=== PATIENT | male | born 1945 | race Caucasian/White ===

== ENCOUNTER 2020-12-09 12:53 | Emergency (ER) | payer MEDICARE ==
--- NOTE | 2020-12-09 13:42 | EDM.PDOC ---
ED HPI GENERAL MEDICAL PROBLEM - General Chief Complaint: Neurological Problem Stated Complaint: DIZZY/KIDNEY STONES Time Seen by Provider: 12/09/20 13:25 Source of Information: Reports: Patient, Old Records, RN History Limitations: Reports: No Limitations - History of Present Illness INITIAL COMMENTS - FREE TEXT/NARRATIVE: 75 yo male presents with dizziness mainly with standing. Was seen in the clinic yesterday and had a CBC, CXR, EKG, Covid, and a Trop that were unremarkable. He has been treated with a few courses of antibiotics recently for diarrhea felt due to colitis(actually diverticulitis). He says he has had diarrhea throughout this course. His urine has been dark for an extended period of time. He does not have fever. He thinks his BP is normally closer to 140. He is not 100% clear on his current meds. When he was in the clinic his main complaint yesterday was actually a cough. Onset: Gradual Duration: Week(s): (1-2), Getting Worse Location: Reports: Head Quality: Reports: Other (no pain) Severity: Moderate Improves with: Reports: Other (lying) Worsens with: Reports: Other (Standing) Context: Reports: Other (See HPI) Associated Symptoms: Reports: Cough. 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 since yesterday) - Related Data Allergies Allergy/AdvReac Type Severity Reaction Status Date / Time cephradine Allergy Rash Verified 12/09/20 13:34 Sulfa (Sulfonamide Allergy Rash Verified 12/09/20 13:34 Antibiotics) Home Meds: Home Meds Amitriptyline [Elavil] 25 mg PO BEDTIME 08/14/15 [History] Levothyroxine 112 mcg PO DAILY 08/14/15 [History] atenoloL [Atenolol] 25 mg PO DAILY 08/14/15 [History] Albuterol Sulfate [Albuterol Sulfate Hfa] 1 - 2 puff IH ASDIRECTED 12/09/20 [History] Azithromycin 250 mg PO ASDIRECTED 12/09/20 [History] Finasteride [Proscar] 5 mg PO DAILY 12/09/20 [History] Glucosam/Chond/Collagen/Hyalur [Glucosamine Chondroitin] 1 tab PO BID 12/09/20 [History] Tamsulosin [Tamsulosin 24 Hr] 0.4 mg PO DAILY 12/09/20 [History] Terazosin [Hytrin] 5 mg PO BEDTIME 12/09/20 [History] guaiFENesin [Mucinex] 600 mg PO BID 12/09/20 [History] lisinopriL [Lisinopril] 5 mg PO DAILY 12/09/20 [History] Past Medical History HEENT History: Reports: Impaired Vision Genitourinary History: Reports: Prostate Disorder Musculoskeletal History: Reports: Back Pain, Chronic, Fibromyalgia Neurological History: Reports: None Endocrine/Metabolic History: Reports: Hypothyroidism - Infectious Disease History Infectious Disease History: Reports: Chicken Pox - Past Surgical History Head Surgeries/Procedures: Reports: None HEENT Surgical History: Reports: Cataract Surgery GI Surgical History: Reports: Cholecystectomy Endocrine Surgical History: Reports: None Neurological Surgical History: Reports: Lumbar Spine Musculoskeletal Surgical History: Reports: Shoulder Replacement Dermatological Surgical History: Reports: None Social & Family History - Tobacco Use Tobacco Use Status *Q: Former Tobacco User Used Tobacco, but Quit: Yes Month/Year Tobacco Last Used: 1986 Second Hand Smoke Exposure: No - Caffeine Use Caffeine Use: Reports: Coffee - Alcohol Use Days Per Week of Alcohol Use: 7 Number of Drinks Per Day: 2 Total Drinks Per Week: 14 - Recreational Drug Use Recreational Drug Use: No ED ROS GENERAL - Review of Systems Review Of Systems: See Below Constitutional: Reports: No Symptoms HEENT: Reports: No Symptoms Respiratory: Reports: Cough Cardiovascular: Reports: Lightheadedness Endocrine: Reports: No Symptoms GI/Abdominal: Reports: Diarrhea. Denies: Black Stool, Bloody Stool, Hematemesis, Hematochezia, Melena, Nausea, Vomiting : Reports: No Symptoms Musculoskeletal: Reports: No Symptoms Skin: Reports: No Symptoms Neurological: Reports: No Symptoms ED EXAM, NEURO - Physical Exam Exam: See Below Exam Limited By: No Limitations General Appearance: Alert, WD/WN, No Apparent Distress Eye Exam: Bilateral Eye: Normal Inspection Ears: Normal External Exam, Normal Canal, Hearing Grossly Normal, Normal TMs Nose: Normal Inspection, No Blood Throat/Mouth: Normal Inspection, Normal Lips, Normal Oropharynx, Normal Voice, No Airway Compromise Head Exam: Atraumatic, Normocephalic Neck: Normal Inspection Respiratory/Chest: No Respiratory Distress, Lungs Clear, Normal Breath Sounds, No Accessory Muscle Use Cardiovascular: Regular Rate, Rhythm, No Edema GI/Abdominal: Normal Bowel Sounds, Soft, Non-Tender, No Distention Neurological: Alert, Normal Mood/Affect, Normal Dorsiflexion, CN II-XII Intact, No Motor/Sensory Deficits, Oriented x 3 Back Exam: Normal Inspection. No: CVA Tenderness (R), CVA Tenderness (L) Extremities: Normal Inspection, Normal Range of Motion, Non-Tender, No Pedal Edema Psychiatric: Normal Affect, Normal Mood Skin Exam: Warm, Dry, Intact, Normal Color, No Rash Course - Vital Signs Last Recorded V/S: Last Vital Signs Temp 36.6 C 12/09/20 13:18 Pulse 70 12/09/20 16:21 Resp 17 12/09/20 16:21 BP 121/74 12/09/20 16:21 Pulse Ox 98 12/09/20 16:21 Orthostatic Blood Pressure [ 72/46 Standing] Orthostatic Blood Pressure [ 83/40 Sitting] Orthostatic Blood Pressure [ 90/57 Supine] - Orders/Labs/Meds Orders: Active Orders 24 hr Category Date Time Status Orthostatic Vital Signs [RC] ASDIRECTED Care 12/09/20 13:36 Active UA W/MICROSCOPIC [URIN] Stat Lab 12/09/20 13:06 Ordered Labs: Laboratory Tests 12/09/20 Range/Units 13:30 Sodium 136 L (140-148) mmol/L Potassium 4.2 (3.6-5.2) mmol/L Chloride 101 (100-108) mmol/L Carbon Dioxide 25 (21-32) mmol/L Anion Gap 14.2 H (5.0-14.0) mmol/L BUN 24 H (7-18) mg/dL Creatinine 1.6 H (0.8-1.3) mg/dL Est Cr Clr Drug Dosing 39.89 mL/min Estimated GFR (MDRD) 42 L (>60) Glucose 151 H (74-106) mg/dL Calcium 8.7 (8.5-10.1) mg/dL Total Bilirubin 0.5 (0.2-1.0) mg/dL AST 27 (15-37) U/L ALT 37 (12-78) U/L Alkaline Phosphatase 53 (46-116) U/L Total Protein 6.2 L (6.4-8.2) g/dL Albumin 3.0 L (3.4-5.0) g/dL Globulin 3.2 (2.3-3.5) g/dL Albumin/Globulin Ratio 0.9 L (1.2-2.2) Meds: Medications Discontinued Medications Generic Name Dose Route Start Last Admin Trade Name Marita PRN Reason Stop Dose Admin Sodium Chloride 1,000 mls @ 1,000 mls/hr 12/09/20 14:14 12/09/20 14:27 Normal Saline IV 12/09/20 15:13 1,000 mls/hr .BOLUS ONE Administration Sodium Chloride 1,000 mls @ 1,000 mls/hr 12/09/20 15:22 12/09/20 15:25 Normal Saline IV 12/09/20 16:21 1,000 mls/hr .BOLUS ONE Administration Departure - Departure Time of Disposition: 16:40 Disposition: Home, Self-Care 01 Condition: Fair Clinical Impression: Dehydration Hypotension Qualifiers: Hypotension type: unspecified hypotension type Qualified Code(s): I95.9 - Hypotension, unspecified - Discharge Information *PRESCRIPTION DRUG MONITORING PROGRAM REVIEWED*: No *COPY OF PRESCRIPTION DRUG MONITORING REPORT IN PATIENT LAVON: No Instructions: Dehydration, Elderly, [id number] Referrals: Luciana Roach PA-C [Primary Care Provider] - Forms: ED Department Discharge Additional Instructions: Drink enough fluids so that your urine is light yellow in color. Hold your terazosin due to your low BP. Recheck with your provider later this week. When getting up sit on the side of the bed with your legs dangling for a few minutes and then when you first stand hold on for a minute to make sure you are not light headed before walking. Consider a probiotic to shorten the course of your diarrhea. Sepsis Event Note (ED) - Evaluation Sepsis Screening Result: No Definite Risk - Focused Exam Vital Signs: Vital Signs Temp Pulse Resp BP Pulse Ox 12/09/20 16:21 70 17 121/74 98 12/09/20 14:44 99/57 L 12/09/20 14:30 76 15 99/54 L 93 L 12/09/20 14:04 79 16 101/51 L 92 L 12/09/20 13:53 91 103/60 12/09/20 13:18 36.6 C 96 13 111/61 98 12/09/20 13:06 36.6 C 96 13 111/61 98 - My Orders Last 24 Hours: My Active Orders 12/09/20 13:06 UA W/MICROSCOPIC [URIN] Stat 12/09/20 13:36 Orthostatic Vital Signs [RC] ASDIRECTED - Assessment/Plan Last 24 Hours: My Active Orders 12/09/20 13:06 UA W/MICROSCOPIC [URIN] Stat 12/09/20 13:36 Orthostatic Vital Signs [RC] ASDIRECTED
[2020-12-09] MEDS ORDERED: Sodium Chloride 0.9% 1,000 ML IV ONE ×2 (14:14→15:22)
[2020-12-09 16:21] VITALS: PULSE 70
[2020-12-09 16:28] VITALS: BP 96/60
== END 2020-12-09 16:41 | disposition home or self-care (01) ==
LOC: JP.ED 12:53
DX: E86.0 Dehydration (principal); I95.9 Hypotension, unspecified; E03.9 Hypothyroidism, unspecified; Z87.891 Personal history of nicotine dependence; Z88.2 Allergy status to sulfonamides; Z88.1 Allergy status to other antibiotic agents; Z79.899 Other long term (current) drug therapy
CPT/HCPCS: 36415; 80053; 81001; 99283; 99284; J7030

== ENCOUNTER 2020-12-12 03:39 | Emergency (ER) | payer MEDICARE ==
[2020-12-12 04:07] VITALS: BP 152/80; PULSE 96
--- NOTE | 2020-12-12 05:24 | EDM.PDOC ---
ED HPI GENERAL MEDICAL PROBLEM - General Chief Complaint: Genitourinary Problem Stated Complaint: CAN'T URINATE Time Seen by Provider: 12/12/20 05:16 Source of Information: Reports: Patient, Old Records, RN Notes Reviewed History Limitations: Reports: No Limitations - History of Present Illness INITIAL COMMENTS - FREE TEXT/NARRATIVE: 75-year-old gentleman presents emergency department day complaint of difficulty urination, he has had problems with this in the past. - Related Data Allergies Allergy/AdvReac Type Severity Reaction Status Date / Time cephradine Allergy Rash Verified 12/12/20 03:55 Sulfa (Sulfonamide Allergy Rash Verified 12/12/20 03:55 Antibiotics) Home Meds: Home Meds Amitriptyline [Elavil] 25 mg PO BEDTIME 08/14/15 [History] Levothyroxine 112 mcg PO DAILY 08/14/15 [History] Albuterol Sulfate [Albuterol Sulfate Hfa] 1 - 2 puff IH ASDIRECTED 12/09/20 [History] Azithromycin 250 mg PO ASDIRECTED 12/09/20 [History] Finasteride [Proscar] 5 mg PO DAILY 12/09/20 [History] Glucosam/Chond/Collagen/Hyalur [Glucosamine Chondroitin] 1 tab PO BID 12/09/20 [History] Terazosin [Hytrin] 5 mg PO BEDTIME 12/09/20 [History] guaiFENesin [Mucinex] 600 mg PO BID 12/09/20 [History] lisinopriL [Lisinopril] 5 mg PO DAILY 12/09/20 [History] Past Medical History HEENT History: Reports: Cataract, Impaired Vision Cardiovascular History: Reports: Hypertension Gastrointestinal History: Reports: GERD, Other (See Below) Other Gastrointestinal History: diverticulitis Genitourinary History: Reports: Prostate Disorder, Renal Calculus Musculoskeletal History: Reports: Back Pain, Chronic, Fibromyalgia Neurological History: Reports: None Endocrine/Metabolic History: Reports: Hypothyroidism Dermatologic History: Reports: Eczema - Infectious Disease History Infectious Disease History: Reports: Chicken Pox - Past Surgical History Head Surgeries/Procedures: Reports: None HEENT Surgical History: Reports: Cataract Surgery GI Surgical History: Reports: Cholecystectomy Endocrine Surgical History: Reports: None Neurological Surgical History: Reports: Lumbar Spine Musculoskeletal Surgical History: Reports: Shoulder Surgery Dermatological Surgical History: Reports: None Social & Family History - Tobacco Use Tobacco Use Status *Q: Never Tobacco User - Caffeine Use Caffeine Use: Reports: Coffee ED ROS GENERAL - Review of Systems Review Of Systems: See Below Respiratory: Reports: No Symptoms Cardiovascular: Reports: No Symptoms GI/Abdominal: Reports: No Symptoms : Reports: Urinary Retention ED EXAM, RENAL/ - Physical Exam Exam: See Below Text/Narrative:: Exam was done after the Townsend catheter was placed by nursing staff, initial bladder scan shows well over 800 cc fluid Exam Limited By: No Limitations General Appearance: Alert, WD/WN, Mild Distress Respiratory/Chest: No Respiratory Distress GI/Abdominal: Soft, Non-Tender Course - Vital Signs Last Recorded V/S: Last Vital Signs Temp 96.4 F L 12/12/20 04:08 Pulse 96 12/12/20 04:08 Resp 20 12/12/20 04:08 BP 152/80 H 12/12/20 04:08 Pulse Ox 98 12/12/20 04:08 Departure - Departure Time of Disposition: 05:23 Disposition: Home, Self-Care 01 Condition: Fair Clinical Impression: Urinary retention - Discharge Information Referrals: Luciana Roach PA-C [Primary Care Provider] - Additional Instructions: Please keep your follow-up appointment with your primary care on Friday call or return to the emergency department worsening of symptoms Sepsis Event Note (ED) - Evaluation Sepsis Screening Result: Possible Sepsis Risk - Focused Exam Vital Signs: Vital Signs Temp Pulse Resp BP Pulse Ox 12/12/20 04:08 96.4 F L 96 20 152/80 H 98 12/12/20 04:06 96.4 F L 96 20 152/80 H 98 - Assessment/Plan Plan: Assessment Acuity = acute Site and laterality = urinary retention Etiology = unknown Manifestations = none Location of injury = Home Lab values = none Plan Leg bag is placed he will follow-up with primary care and urology hopefully this week This note was dictated using [employer] voice recognition software please call with any questions on syntax or grammar.
== END 2020-12-12 05:37 | disposition home or self-care (01) ==
LOC: JP.ED 03:39
DX: R33.9 Retention of urine, unspecified (principal); I10 Essential (primary) hypertension; E03.9 Hypothyroidism, unspecified; Z88.2 Allergy status to sulfonamides; Z88.1 Allergy status to other antibiotic agents; Z79.899 Other long term (current) drug therapy
CPT/HCPCS: 51702; 99282; 99283-25

== ENCOUNTER 2022-10-11 23:52 | Emergency (ER) | payer MEDICARE ==
[2022-10-11] MEDS ORDERED: Sodium Chloride 0.9% 500 ML IV ONE (23:53)
[2022-10-11] MEDS ORDERED: Sodium Chloride 0.9% 10 ML Syringe FLUSH PRN (23:53)
[2022-10-12] MEDS ORDERED: Tranexamic Acid 1,000 MG in Sodium Chloride 0.9% 50 ML IV ONE (00:06)
[2022-10-12 00:30] LABS: ESTIMATED GFR 78 mL/min (>60); TROPONIN I HIGH SENSITIVITY 6.7 pg/mL (<=60.3)
[2022-10-12] MEDS ORDERED: niCARdipine HCl 25 MG in Sodium Chloride 0.9% 240 ML IV SCH (01:00)
[2022-10-12 02:07] VITALS: BP 125/67; PULSE 81
== END 2022-10-12 02:06 ==
LOC: JP.ED 23:52
DX: I60.9 Nontraumatic subarachnoid hemorrhage, unspecified (principal); I10 Essential (primary) hypertension; E03.9 Hypothyroidism, unspecified; Z79.899 Other long term (current) drug therapy; Z88.1 Allergy status to other antibiotic agents; Z88.2 Allergy status to sulfonamides; Z20.822 Contact with and (suspected) exposure to COVID-19
CPT/HCPCS: 36415; 70450; 80053; 80307; 84484; 85025; 85610; 85730; 93005; 96365; 96366; 96368; 99285-25; 99291; J3490; J7040; J7050; U0002

== ENCOUNTER 2023-05-22 13:11 | Emergency (ER) | payer MEDICARE ==
[2023-05-22 14:07] LABS: BASOPHILS ABSOLUTE AUTO 0.03 K/uL (0.00-0.10); BASOPHILS PERCENT AUTO 0.5 % (0.1-1.3); EOSINOPHILS ABSOLUTE AUTO 0.17 K/uL (0.00-0.40); EOSINOPHILS PERCENT AUTO 3.1 % (0.0-5.4); HEMATOCRIT 42.7 % (38.4-49.7); HEMOGLOBIN 15.2 g/dL (12.9-16.9); IMMATURE GRAN ABSOLUTE AUTO 0.03 K/uL (0.00-0.23); IMMATURE GRAN PERCENT AUTO 0.5 % (0.0-0.7); LYMPHOCYTES PERCENT AUTO 14.4 % (11.4-47.7); MEAN CORPUSCULAR HEMOGLOBIN 32.5 pg (31.6-35.5); MEAN CORPUSCULAR HGB CONC 35.6 g/dL (31.6-35.5); MEAN CORPUSCULAR VOLUME 91.4 fL (81.4-99.0); MONOCYTES ABSOLUTE AUTO 0.54 K/uL (0.20-0.90); MONOCYTES PERCENT AUTO 9.7 % (3.3-12.6); NEUTROPHILS ABSOLUTE AUTO 3.99 K/uL (1.0-7.6); NEUTROPHILS PERCENT AUTO 71.8 % (40.0-78.1); PLATELET COUNT,PLT 123 K/uL (130-375); RED BLOOD CELL COUNT 4.67 M/uL (4.14-5.76); WHITE BLOOD CELL COUNT,WBC 5.6 K/uL (3.2-11.0)
[2023-05-22 14:32] LABS: BLOOD UREA NITROGEN,BUN 13 mg/dL (7-18); CALCIUM 9.2 mg/dL (8.5-10.1); CARBON DIOXIDE,CO2 31 mmol/L (21-32); CHLORIDE,CL 102 mmol/L (100-108); CREATININE 1.1 mg/dL (0.8-1.3); ESTIMATED GFR 69 mL/min (>60); GLUCOSE RANDOM 104 mg/dL (74-106); SODIUM,NA 138 mmol/L (140-148); TROPONIN I HIGH SENSITIVITY 5.4 pg/mL (<=60.3)
[2023-05-22 15:34] VITALS: BP 136/78; PULSE 62
== END 2023-05-22 15:07 | disposition home or self-care (01) ==
LOC: JP.ED 13:11
DX: M94.0 Chondrocostal junction syndrome [Tietze] (principal); I10 Essential (primary) hypertension; E03.9 Hypothyroidism, unspecified; Z88.8 Allergy status to other drugs, medicaments and biological substances; Z88.1 Allergy status to other antibiotic agents; Z79.899 Other long term (current) drug therapy; Z87.891 Personal history of nicotine dependence
CPT/HCPCS: 36415; 80048; 84484; 85025; 93005; 99285